=== PATIENT | male | born 1960 | race Native Hawaiian/Other Pacific Islander ===

== ENCOUNTER 2017-03-06 12:12 | Emergency (ER) | payer MEDICAID, OTHER ==
[~2017-03-06] VITALS: Ht 165.1 cm; Wt 82.0 kg
[~2017-03-06 12:12] MED LIST: LISI2.5T55 PO; METF500 PO; PROT40TA PO
[2017-03-06 12:15] VITALS: BP 156/88; PULSE 78; RESP 20; TEMP 99.2; O2SAT 98
--- NOTE | 2017-03-06 12:48 | PD ---
Physical Exam Date Seen by Provider: March 06, 2017 Time Seen by Provider: 12:44 Narrative 56 y/o male with injury to right lateral foot and 5th toe from table leg 3 days ago. Pain and swelling and bruising. Pain 8/10 and worse with walking. Has notdone anything but Ice and Rest. No deformity. No numbness or weakness. Allergic to PCN V/S Stable Awaiting Bed Placement. Data Data Last Documented VS Vital Signs Date Time Temp Pulse Resp B/P Pulse Ox O2 Delivery O2 Flow Rate FiO2 03/06/17 12:15 99.2 78 20 156/88 98 Room Air [facility] Medical Record Reviewed: Yes Supervised Visit with UMAIR: Yes Condition: Stable Marcelo Ware March 06, 2017 12:48
--- NOTE | 2017-03-06 13:07 | PD ---
HPI Chief Complaint: Musculoskeletal Complaint Time Seen by Provider: 13:07 Travel History International Travel<30 days: No Contact w/Intl Traveler<30days: No Traveled to known affect area: No History of Present Illness HPI 56-year-old male presents emergency Department with complaint of right foot pain over the fifth metacarpal area since after stubbing his foot on a coffee table. He said his right fifth toe was dislocated and he put it back in place. Reports bruising to the top of his foot which has gotten better. Reports swelling to this point. Denies paresthesias, loss of sensation to the affected extremity. Denies fever, vomiting. Has been icing and elevating the affected extremity with minimal relief of symptoms. Is not taking any medications to alleviate his symptoms. Has been ambulatory on the affected extremity. Allergies to penicillin. Has no other medical complaints. No other modifying factors or associated signs and symptoms. PFSH Past Medical History Arthritis: Yes Cancer: No Cardiovascular Problems: No Cerebrovascular Accident: No Diabetes: Yes Endocrine: Yes Genitourinary: No Immune Disorder: No Musculoskeletal: Yes Neurologic: Yes Psychiatric: No Reproductive: No Respiratory: No Migraines: Yes (OCCATIONALLY) Seizures: No Thyroid Disease: No Past Surgical History Abdominal Surgery: Yes (SMITH) Cardiac Surgery: No Cholecystectomy: Yes Ear Surgery: No Endocrine Surgery: No Eye Surgery: No Genitourinary Surgery: No Gynecologic Surgery: No Oral Surgery: No Thoracic Surgery: No Social History Alcohol Use: No Tobacco Use: No Substance Use: No Allergies-Medications (Allergen,Severity, Reaction): Coded Allergies: Penicillin (Verified Allergy, Unknown, Rash, 03/06/17) Reported Meds & Prescriptions Reported Meds & Active Scripts Active Ibuprofen 800 Mg Tab 800 Mg PO Q6HR PRN Reported Lisinopril 2.5 mg (Lisinopril) 2.5 Mg Tab 5 Mg PO DAILY Protonix (Pantoprazole Sodium) 40 Mg Tab 40 Mg PO DAILY Glucophage 500 mg (Metformin HCl) 500 Mg Tab 500 Mg PO PRN Review of Systems Except as stated in HPI: all other systems reviewed are Neg Physical Exam Narrative GENERAL: Well-nourished, well-developed male patient, in no acute distress SKIN: Warm and dry. HEAD: Atraumatic. Normocephalic. EYES: Pupils equal and round. No scleral icterus. No injection or drainage. ENT: Mucosa pink and moist. Airway patent. NECK: Trachea midline. CARDIOVASCULAR: Regular rate. RESPIRATORY: No accessory muscle use. GASTROINTESTINAL: Rounded. MUSCULOSKELETAL: Dorsal aspect of right foot is edematous and without erythema ; minimal ecchymosis noted to the base of the third, fourth, fifth toes; with tenderness on palpation; no obvious deformity. Right lower extremity is supple and non-tense with 2+ pedal pulses and sensory intact. No obvious deformities. No clubbing. No cyanosis. No edema. NEUROLOGICAL: Awake and alert. Oriented 3. No obvious cranial nerve deficits. Motor grossly within normal limits. Normal speech. PSYCHIATRIC: Appropriate mood and affect; insight and judgment normal. Data Data Last Documented VS Vital Signs Date Time Temp Pulse Resp B/P Pulse Ox O2 Delivery O2 Flow Rate FiO2 03/06/17 12:15 99.2 78 20 156/88 98 Room Air Orders Foot, Complete ([id number]) (03/06/17 13:07) Ice/Cold Pack (03/06/17 13:07) Crutches (03/06/17 13:07) Ibuprofen (Motrin) (03/06/17 13:15) MDM Medical Decision Making Medical Screen Exam Complete: Yes Emergency Medical Condition: Yes Medical Record Reviewed: Yes Differential Diagnosis Toe fracture, Foot fracture, foot contusion, foot sprain Narrative Course 56-year-old male with right foot injury. Ibuprofen ordered and administered in the ER. Crutches ordered for support. Right foot x-ray ordered. 1422: Right foot x-ray concludes Nondisplaced fracture of base of the fifth digit. Postop shoe and crutches provider for support. Ibuprofen prescribed for home. Patient verbalizes understanding and agreement with treatment plan. Patient is medically cleared and stable for discharge. Discussed reasons to return to the emergency department. Instructed patient to follow up with primary care provider. Patient agrees with treatment plan. The patients vital signs are stable and the patient is stable for outpatient follow-up and treatment. Patient discharged home, stable and in no acute distress. Diagnosis Primary Impression: Toe fracture, right Qualified Code: S92.514A - Closed nondisplaced fracture of proximal phalanx of lesser toe of right foot, initial encounter Referrals: Primary Care Physician Patient Instructions: General Instructions, Toe Fracture (ED) Departure Forms: Tests/Procedures, Work Release Enter return to work date: March 13, 2017 Additional Instructions: Tylenol/ibuprofen every 6 hours as directed and as needed for pain Rest, ice, compress, and elevate extremity to decrease pain and inflammation Nazario bandage for compression and support Postop Shoe for support Crutches for support Avoid aggravating activity; increase activity as tolerated Follow-up with primary care provider Return to the emergency department immediately with worsening symptoms Med/Other Pt SpecificInfo: Prescription(s) given Scripts Ibuprofen 800 Mg [id number] Mg PO Q6HR PRN (PAIN) #30 TAB Ref 0 Prov:Marli Carpenter 03/06/17 Disposition: 01 DISCHARGE HOME Condition: Stable Marli Carpenter March 06, 2017 13:07
[2017-03-06] MEDS ORDERED: IBUPROFEN 800 MG TAB PO ONE (13:15)
[2017-03-06] MEDS ORDERED: IBUP800T23 PO (13:40)
--- NOTE | 2017-03-06 14:18 | RADRPT ---
EXAM DATE/TIME: 03/06/2017 14:15 [place] COMPARISON: No previous studies available for comparison. INDICATIONS : Ran into table leg, deformed 5th toe. Now swelling with pain and bruising. MEDICAL HISTORY : None. SURGICAL HISTORY : None. ENCOUNTER: Initial ACUITY: 4 - 6 days PAIN SCORE: 10/10 LOCATION: Right foot. FINDINGS: Fracture at base of the proximal phalanx of the fifth digit. No other fractures are appreciated. CONCLUSION: Nondisplaced fracture of base of the fifth digit. Xiang Taveras MD FACR on March 06, 2017 at 14:15 Board Certified Radiologist. This report was verified electronically.
[2017-03-06 14:29] VITALS: RESP 17
== END 2017-03-06 14:35 | disposition home or self-care (01) ==
LOC: NEPK 12:12
DX: S92.911A Unspecified fracture of right toe(s), initial encounter for closed fracture (principal); E11.9 Type 2 diabetes mellitus without complications; Z79.4 Long term (current) use of insulin; W22.03XA Walked into furniture, initial encounter; Y93.01 Activity, walking, marching and hiking; Y92.9 Unspecified place or not applicable; Y99.9 Unspecified external cause status
CPT/HCPCS: 73630; 99283; E0113; L3260